=== PATIENT | female | born 1960 | race Two or more races ===

== ENCOUNTER 2024-08-20 11:09 | Emergency (ER) | payer MEDICARE, BC ==
[~2024-08-20] VITALS: Ht 167.6 cm; Wt 51.7 kg
[2024-08-20] MEDS ORDERED: FAMOTIDINE/PF INJ 20 MG/2 ML VIAL IV ONE (11:24)
[2024-08-20] MEDS: IV NS 0.9% 1,000 ML BAG IV ONE (11:26)
[2024-08-20] MEDS: FAMOTIDINE/PF INJ 20 MG/2 ML VIAL IV ONE (11:26)
[2024-08-20] MEDS ORDERED: FAMO-131 PO (11:28)
[2024-08-20] MEDS ORDERED: DIPH25CA83 PO (11:28)
[2024-08-20] MEDS ORDERED: PRED20TA PO (11:28)
[2024-08-20] MEDS ORDERED: EPIN0.3P3 IM (11:28)
[2024-08-20 13:44] VITALS: BP 105/57; TEMP 98; O2SAT 98
== END 2024-08-20 13:45 | disposition home or self-care (01) ==
LOC: ER 11:18
DX: T78.40XA Allergy, unspecified, initial encounter (principal); T46.7X5A Adverse effect of peripheral vasodilators, initial encounter; E78.5 Hyperlipidemia, unspecified; Z79.52 Long term (current) use of systemic steroids; Y92.89 Other specified places as the place of occurrence of the external cause
CPT/HCPCS: 99285; 96374; 96361; J1308; J7030